=== PATIENT | female | born 1995 | race Caucasian/White ===

== ENCOUNTER 2017-12-19 04:33 | Emergency (ER) | payer SELFPAY ==
[~2017-12-19] VITALS: Ht 162.6 cm; Wt 85.0 kg
[~2017-12-19 04:33] MED LIST: IBUP800 PO; LORTA5 PO; PERC7.5T3 PO; PREN0.01 PO
[2017-12-19 04:35] VITALS: BP 123/67; PULSE 87; RESP 18; TEMP 98.2; O2SAT 98
[2017-12-19] MEDS ORDERED: SODIUM CHLOR 0.9% 1000 ML INJ 1,000 ML IV ONE (05:00)
[2017-12-19 05:01] LABS: AUTOMATED NEUTROPHIL # 5.6 TH/MM3 (1.8-7.7); BASOPHIL # 0.1 TH/MM3 (0-0.2); BASOPHIL % 1.4 % (0.0-2.0); EOSINOPHIL # 0.3 TH/MM3 (0-0.4); EOSINOPHIL % 2.6 % (0.0-4.0); HEMATOCRIT 40.2 % (35.0-46.0); HEMOGLOBIN 13.8 GM/DL (11.6-15.3); LYMPH % 31.9 % (9.0-44.0); LYMPHOCYTE # 3.1 TH/MM3 (1.0-4.8); MEAN CELL VOLUME 91.6 FL (80.0-100.0); MEAN CORPUSCULAR HEMOGLOBIN 31.4 PG (27.0-34.0); MEAN CORPUSCULAR HGB CONC 34.2 % (32.0-36.0); MEAN PLATELET VOLUME 10.3 FL (7.0-11.0); MONO % 7.4 % (0.0-8.0); MONOCYTE # 0.7 TH/MM3 (0-0.9); NEUT % 56.7 % (16.0-70.0); PLATELET COUNT 200 TH/MM3 (150-450); RED BLOOD COUNT 4.39 MIL/MM3 (4.00-5.30); RED CELL DISTRIBUTION WIDTH 13.1 % (11.6-17.2); WHITE BLOOD COUNT 9.8 TH/MM3 (4.0-11.0)
[2017-12-19 05:21] LABS: ALBUMIN 3.5 GM/DL (3.4-5.0); AST (GOT) 9 U/L (15-37); BICARBONATE 24.8 MEQ/L (21.0-32.0); BLOOD UREA NITROGEN 8 MG/DL (7-18); CALCIUM 8.9 MG/DL (8.5-10.1); CHLORIDE 110 MEQ/L (98-107); GLOMERULAR FILTRATION RATE 103 ML/MIN (>89); GLUCOSE,RANDOM 99 MG/DL (74-106); SODIUM (NA) 142 MEQ/L (136-145)
[2017-12-19 05:24] LABS: ALKALINE PHOSPHATASE 95 U/L (45-117); ALT (GPT) 11 U/L (10-53); TOTAL BILIRUBIN ADULT 0.2 MG/DL (0.2-1.0); TOTAL PROTEIN 7.4 GM/DL (6.4-8.2)
[2017-12-19] MEDS ORDERED: KETOROLAC TROMETHAMINE 30 MG/ML (IVP) VIAL IV PUSH ONE (05:30)
[2017-12-19 05:31] LABS: BACTERIA, URINE MOD /hpf; BILIRUBIN, URINE NEG (NEG); BLOOD, URINE SMALL (NEG); GLUCOSE,URINE NEG (NEG); HYALINE CAST, URINE 8 /lpf (RARE); KETONE, URINE NEG (NEG); MUCUS URINE FEW /lpf (OCC); NITRITE,URINE POS (NEG); PH, URINE 5.5 (5.0-8.5); SQUAMOUS EPITHELIAL CELL URINE 18 /hpf (0-5); URINE COLOR YELLOW (YELLW/STRAW); URINE LEUKOCYTE ESTERASE MOD (NEG)
--- NOTE | 2017-12-19 06:07 | PD ---
HPI Chief Complaint: Abdominal Pain Time Seen by Provider: 04:45 Travel History International Travel<30 days: No Contact w/Intl Traveler<30days: No Traveled to known affect area: No History of Present Illness HPI Patient had sudden onset of severe lower suprapubic abdominal pain is cramping in nature and radiates around to the left flank. She took Motrin without relief of her symptoms. Patient has history of polycystic ovaries and she says this pain is similar to that pain in the past. Patient has not seen another doctor for this pain. UTI Hx as well , denies CP no nausea no vomit, She has not seen another provider for this illness. PFSH Past Medical History ADHD: Yes Diminished Hearing: No Reproductive: Yes (PCOS) ?: Not LMP: 12/06/17 : 3 Para: 0 Miscarriage: 2 Past Surgical History Section: Yes Social History Alcohol Use: No Tobacco Use: Yes (1 PP 2 WEEKS) Substance Use: No Allergies-Medications (Allergen,Severity, Reaction): Coded Allergies: No Known Allergies (Verified Adverse Reaction, Unknown, 12/19/17) Reported Meds & Prescriptions Reported Meds & Active Scripts Active No Active Prescriptions or Reported Medications Review of Systems Except as stated in HPI: all other systems reviewed are Neg Gastrointestinal: Positive: Abdominal Pain Genitourinary: Positive: Pelvic Pain, Flank Pain Physical Exam Narrative GENERAL: i distress holding her inguinal area bilateral SKIN: Warm and dry. HEAD: Atraumatic. Normocephalic. EYES: Pupils equal and round. No scleral icterus. No injection or drainage. ENT: No nasal bleeding or discharge. Mucous membranes pink and moist. NECK: Trachea midline. No JVD. CARDIOVASCULAR: Regular rate and rhythm. RESPIRATORY: No accessory muscle use. Clear to auscultation. Breath sounds equal bilaterally. GASTROINTESTINAL: Abdomen pain suprapubic and left flank . NEUROLOGICAL: Awake and alert. No obvious cranial nerve deficits. Motor grossly within normal limits. Five out of 5 muscle strength in the arms and legs. Normal speech. PSYCHIATRIC: Appropriate mood and affect; insight and judgment normal. Data Data Last Documented VS Orders Orders Complete Blood Count With Diff (12/19/17 04:47) Comprehensive Metabolic Panel (12/19/17 04:47) Lipase (12/19/17 04:47) Urinalysis - C+S If Indicated (12/19/17 04:47) Ed Urine Pregnancytest Poc (12/19/17 04:47) Sodium Chlor 0.9% 1000 Ml Inj (Ns 1000 M (12/19/17 05:00) Ketorolac Inj (Toradol Inj) (12/19/17 05:30) Urine Culture (12/19/17 05:10) Us Kidney/Renal/Bladder (12/19/17 ) Cefazolin 2 Gm Premix (Ancef 2 Gm Premix (12/19/17 06:15) Morphine Inj (Morphine Inj) (12/19/17 08:30) Us Pelvis Comp W Dop Transvag (12/19/17 ) Ed Discharge Order (12/19/17 10:25) Labs Laboratory Tests Test 12/19/17 04:45 12/19/17 05:10 White Blood Count 9.8 TH/MM3 Red Blood Count 4.39 MIL/MM3 Hemoglobin 13.8 GM/DL Hematocrit 40.2 % Mean Corpuscular Volume 91.6 FL Mean Corpuscular Hemoglobin 31.4 PG Mean Corpuscular Hemoglobin Concent 34.2 % Red Cell Distribution Width 13.1 % Platelet Count 200 TH/MM3 Mean Platelet Volume 10.3 FL Neutrophils (%) (Auto) 56.7 % Lymphocytes (%) (Auto) 31.9 % Monocytes (%) (Auto) 7.4 % Eosinophils (%) (Auto) 2.6 % Basophils (%) (Auto) 1.4 % Neutrophils # (Auto) 5.6 TH/MM3 Lymphocytes # (Auto) 3.1 TH/MM3 Monocytes # (Auto) 0.7 TH/MM3 Eosinophils # (Auto) 0.3 TH/MM3 Basophils # (Auto) 0.1 TH/MM3 CBC Comment DIFF FINAL Differential Comment Blood Urea Nitrogen 8 MG/DL Creatinine 0.70 MG/DL Random Glucose 99 MG/DL Total Protein 7.4 GM/DL Albumin 3.5 GM/DL Calcium Level 8.9 MG/DL Alkaline Phosphatase 95 U/L Aspartate Amino Transf (AST/SGOT) 9 U/L Alanine Aminotransferase (ALT/SGPT) 11 U/L Total Bilirubin 0.2 MG/DL Sodium Level 142 MEQ/L Potassium Level 3.8 MEQ/L Chloride Level 110 MEQ/L Carbon Dioxide Level 24.8 MEQ/L Anion Gap 7 MEQ/L Estimat Glomerular Filtration Rate 103 ML/MIN Lipase 129 U/L Urine Color YELLOW Urine Turbidity HAZY Urine pH 5.5 Urine Specific [place] 1.024 Urine Protein NEG mg/dL Urine Glucose (UA) NEG mg/dL Urine Ketones NEG mg/dL Urine Occult Blood SMALL Urine Nitrite POS Urine Bilirubin NEG Urine Urobilinogen LESS THAN 2.0 MG/DL Urine Leukocyte Esterase MOD Urine RBC 2 /hpf Urine WBC 5 /hpf Urine Squamous Epithelial Cells 18 /hpf Urine Bacteria MOD /hpf Urine Hyaline Casts 8 /lpf Urine Mucus FEW /lpf Microscopic Urinalysis Comment CULTURE INDICATED MDM Medical Decision Making Medical Screen Exam Complete: Yes Emergency Medical Condition: Yes Medical Record Reviewed: Yes Differential Diagnosis PCO vs torsion vs renal colic vs UTI with pyelonephrtis Narrative Course UTI I gave pt IV doses of 2grams Ancef and she will go upstairs for a U/ S Ruling out ovarian torsion and renal stone , I reviewed this chart on 12/23/17 .. I see that pt has Urine cultures that grew E.Coli resistant to many PO antibiotics,, I called patient phone and Left a message for the patient instructing her to return to the Hospital for IV antibiotics for her UTI,, she returned call and informed me she was given RX for Cephalexin and was taking it . I told her if it did not respond to that medication to return to the ER for further IV treatment . Diagnosis Primary Impression: Abdominal pain Qualified Codes: R10.9 - Unspecified abdominal pain Additional Impression: Urinary tract infection Qualified Codes: N30.00 - Acute cystitis without hematuria Scripts No Active Prescriptions or Reported Meds Noel Durant MD Dec 19, 2017 06:07
[2017-12-19] MEDS ORDERED: ceFAZolin 2 GM PREMIX 50 ML IV ONE (06:15)
[2017-12-19 07:00] VITALS: BP 130/78; PULSE 81; RESP 16; TEMP 97.8; O2SAT 99
[2017-12-19 08:30] VITALS: RESP 15
[2017-12-19] MEDS ORDERED: MORPHINE SULFATE 4 MG/ML INJ IV PUSH ONE (08:30)
--- NOTE | 2017-12-19 09:35 | RADRPT ---
EXAM DATE/TIME: 12/19/2017 07:47 [facility] COMPARISON: No previous studies available for comparison. INDICATIONS : Left flank pain. MEDICAL HISTORY : Chronic obstructive pulmonary disease. SURGICAL HISTORY : section. ENCOUNTER: Initial ACUITY: 1 day PAIN SCORE: 7/10 LOCATION: Bilateral flank MEASUREMENTS: RIGHT KIDNEY: 10.9 x 4.7 x 5.9 cm LEFT KIDNEY: 11.2 x 4.3 x 5.3 cm FINDINGS: RIGHT KIDNEY: Renal cortex is normal in thickness and echotexture. No hydronephrosis, stone, or mass. LEFT KIDNEY: Renal cortex is normal in thickness and echotexture. No hydronephrosis, stone, or mass. BLADDER: Within normal limits given the degree of distension. CONCLUSION: Normal examination. Esdras Aguilar MD on December 19, 2017 at 9:32 Board Certified Radiologist. This report was verified electronically.
--- NOTE | 2017-12-19 10:07 | RADRPT ---
EXAM DATE/TIME: 12/19/2017 08:06 [facility] COMPARISON: No previous studies available for comparison. INDICATIONS : Pelvic pain. MEDICAL HISTORY : Chronic obstructive pulmonary disease. SURGICAL HISTORY : section. ENCOUNTER: Initial ACUITY: 1 day PAIN SCORE: 7/10 LOCATION: Bilateral pelvis MEASUREMENTS: UTERUS: 8.6 x 5.4 x 4.3 cm ENDOMETRIAL STRIPE: 9 mm RIGHT OVARY: 2.5 x 2.1 x 1.4 cm LEFT OVARY: 4.7 x 3.9 x 2 cm FINDINGS: UTERUS: The myometrium has homogeneous echotexture without mass. RIGHT OVARY: Ovary contains no mass or significant cystic lesion. LEFT OVARY: Ovary contains no mass or significant cystic lesion.There is an echogenic foci measuring 3.2 x 2.1 x 2.0 cm within the left ovary that contains no Doppler flow. MISCELLANEOUS: Very small amount of physiologic fluid in the cul-de-sac. CONCLUSION: 1. Small amount of physiologic fluid in the cul-de-sac. The uterus and right ovary are sonographicall y normal. 2. In the left ovary, there is a 3.2 x 2.1 2.0 cm echogenic foci. Diagnostic considerations include a small, fat-containing dermoid or possibly hemorrhagic/proteinaceous cyst. No Doppler flow was identi fied in this lesion and therefore, I favor the latter. If there is a clinical concern, CT could be pe rformed for further characterization. Jason Luu MD on December 19, 2017 at 10:01 Board Certified Radiologist. This report was verified electronically.
[2017-12-19 10:35] VITALS: BP 124/81; TEMP 97.8
== END 2017-12-19 10:35 | disposition home or self-care (01) ==
LOC: NEPE 04:33
DX: N30.00 Acute cystitis without hematuria (principal); F17.200 Nicotine dependence, unspecified, uncomplicated; E28.2 Polycystic ovarian syndrome; B96.20 Unspecified Escherichia coli [E. coli] as the cause of diseases classified elsewhere
CPT/HCPCS: 76775; 76830; 76856; 80053; 81001; 83690; 84703; 85025; 87077; 87086; 87186; 93975; 96361; 96365; 96375; 99284; J0690; J1885; J2270; J7030